=== PATIENT | female | born 1965 | race Caucasian/White ===

== ENCOUNTER 2025-01-13 12:23 | Emergency (ER) | payer BC, SELFPAY ==
--- OUTSIDE RECORDS SUMMARY | 2025-01-13 12:25 | XMS_ITS | Clinical Summary ---
Author Organization [employer] [facility] Address [address] [place] [address] Care Team Providers Care Care Transition Manager Name Role Phone Sagrario Major Sumi Unavailable [phone] Genesis Gallardo Unavailable [phone] Kristi Roberts DO Primary Care Provider [phone] Allergies Active Allergy Reactions Criticality Noted Date Comments Ibuprofen Numbness on left side of face Medications ASPIRIN 81 MG TAB, DELAYED RELEASE take 1 tablet (81 mg) by oral route once daily 0 9 Active cholecalciferol (VITAMIN D) 1,000 unit capsule Take 1 capsule by mouth once daily. 0 1 Active multivitamin capsule Take 1 capsule by mouth once daily. 0 6 Active triamcinolone 0.1 % ointmentIndicat ions:Urticarial rash Apply topically to affected area(s) three times daily. 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 Excised by Dr. Casey on 02/25/21. 01/26/21 - Severally Atypical Nevus on the Left Anterior Thigh. Excised by Dr. Casey on 03/02/21. Mixed incontinence urge and stress 01/14/2021 Synovial cyst of lumbar spine 01/06/2018 Overview (11/28/2021): L sided impingement/spinal stenosis Melanoma in situ (HC) - thigh 11/30/2017 Cancer Staging:Clinical stage from 12/01/2016:Stage 0(cTis, cN0, cM0) - Signed by Irma Hagen MD on 11/28/2021 Overview (11/30/2017): 12/21/2016 Left Lateral Thigh, Malanoma in situ, excised Dr. Angulo Sensorineural hearing loss, bilateral 06/06/2008 Overview (06/20/2023): Wears hearing aids VANDANA III (cervical intraepith elial neoplasia grade III) with severe dysplasia 04/07/2004 Overview (06/28/2023): 02/2004 LSIL-H 03/2004 [facility]: Biopsy VANDANA 2-3, ECC Negative 04/2004 LEEP: VANDANA 2-3, negative margins 07/2004 ASCUS/HPV+ 07/2004 [facility]: Biopsy VANDANA 1 01/2005 ASCUS/HPV Negative 04/2005 NIL 03/2006 NIL 01/2007 NIL 03/2008 NIL 02/2009 NIL 05/2010 NIL 05/2011 NIL 08/2012 NIL NIL/HPV negative 10/2014 NIL 05/2017 NIL/HPV+, HPV 16/18 negative 09/2018 NIL/HPV+ 10/2018 [facility]: Biopsy and ECC Benign 12/2019 NIL/HPV negative 01/2021 NIL/HPV negative 06/2023 NIL/HPV negative. Plan: Pap/HPV due 06/2026. Adjustment disorder with depressed mood Overview (01/29/2007): with stress of divorce Resolved Problems Problem Noted Date Diagnosed Date Resolved Date Routine adult health maintenance 05/25/2017 06/20/2023 Overview (05/25/2017): Colonoscopy 05/2017 normal, repeat in 10 years HPV (human papilloma virus) infection 05/08/2017 06/12/2017 Overview (06/10/2017): HPV positive; Plan - add on HPV 16/18 Melanoma in situ of lower extremity 12/21/2016 11/30/2017 Encounters Date Type Department Care Team Description 01/13/2025 Nurse Triage [facility] [address] [place] [address] Kristi Roberts Zulema, DO Possible Heart Problem from Last 3 Months Immunizations Immunization Administration Dates Next Due AMB Influenza, IIV3 (Age >=3 years)(Flu Clinic Only) 04/02/2008 HepA-HepB (Twinrix) 05/26/2011,07/28/2010 Influenza, IIV3 (Age >=3 years) 05/26/19 12,07/28/2010,02/24/2009,2007 MMR 07/28/2010 Td, Preservative Free (age > = 7 Years) 06/01/2017 Tdap 01/29/2007 Zoster (Shingrix-RZV, recombinant) 06/05/2020, Family History Medical History Relation Name Comments Diabetes Father Heart Disease Father MS age 70 Hypertension Father Macular degeneration Maternal Grandmother Diabetes Mother borderline Hypertension Mother Other Paternal Aunt Unknown Paternal Grandfather Cancer Paternal Grandmother Ovarian or uterine (unsure) Rheum arthritis Sister 1 Cancer-breast No Family History Relation Name Status Comments Father Maternal Grandmother Mother Paternal Aunt Paternal Grandfather Paternal Grandmother Sister 1 Sister 2 Alive Social History Tobacco Use Types Packs/Day Years Used Date Smoking Tobacco: Former Smokeless Tobacco: Never Tobacco Cessation:Counseling Given: Yes Comments:socially only as young adult Alcohol Use Standard Drinks/Week Comments Yes 2 (1 standard drink = 0.6 oz pure alcohol) 2 times a week couple glasses of wine PHQ-2 Answer Date Recorded PHQ-2 TOTAL SCORE 0 06/20/2023 Social Connections Answer Date Recorded Do you often feel lonely or isolated from those around you? 0 08/16/2023 Financial Resource Strain Answer Date R ecorded Difficulty of Paying Living Expenses 3 08/16/2023 Difficulty of Paying Living Expenses Not on file 08/16/2023 Food Insecurity Answer Date Recorded Do you worry your food will run out before you are able to buy more? 1 08/16/2023 Transportation Needs Answer Date Record ed Does lack of transportation keep you from medica l appointments? 1 08/16/2023 Does lack of transportation keep you from work, meetings or getting things that you need? 1 08/16/2023 Housing Stability Answer Date Recorded What is your housing situation today? 1 08/16/2023 Utilities Answer Date Recorded Do you have trouble paying f or utilities (for example, heat, electricity, water, phone)? 1 08/16/2023 Comments No Sex and Gender Information Value Date Recorded Sex Assigned at Not on file Legal Sex Female 6:13 AM HEALTH CLUB MANAGER Gender Identity Not on file Sexual Orientation Not on file Occupation Industry Job Start Date Job End Date Not on file Not on file Not on file Not on file [employer] Not on file Not on file Not on file Obstetrics History Para Term AB IAB SAB Ectopic Multiple Livin g Live Births 2 2 2 0 0 0 0 0 2 2 Date Outcome GA Total Labor Labor/2nd/3rd Weight Sex Type Anes PTL Zulema A1 A5 Name Clin Term 2.95 kg (6 lb 8 oz) Living Term 3.29 kg (7 lb 4 oz) Living Last Filed Vital Signs Vital Sign Reading Time Taken Comments Blood Pressure 112/77 10/10/2023 11:06 AM CDT Pulse 77 10/10/2023 11:06 AM CDT Temperature 36.8 C (98.2 F) 10/08/2018 10:09 AM CDT Respiratory Rate 16 12/21/2016 10:44 AM CDT Oxygen Saturation 98% 10/10/2023 11:06 AM CDT Inhaled Oxygen Concentration - - Weight 69.4 kg (153 lb) 08/29/2023 2:35 PM CDT Height 159.2 cm (5' 2.68) 06/20/2023 8:12 AM CS T Body Mass Index 27.38 06/20/2023 8:12 AM HEALTH CLUB MANAGER Plan of Treatment Upcoming Encounters Date Type Department Care Team (Late st Contact Info) Description 02/03/2025 8:30 AM CDT Office Visit [facility] [address] [place] [address] Kristi Roberts, DO [address] [place] [address] 04/09/2025 10:20 AM HEALTH CLUB MANAGER Office Visit [facility] [address] [place] [address] Genesis Gallardo PA [address] [address] [place] [address] Health Maintenance Due Date Last Done Comments Hepatitis B series for 19+ (3 of 3 - Hep B Twinrix 3-dose series) 10/25/2011 05/26/2011, 07/28/2010 Pneumococcal series for age 50+ (1 of 1 - PCV) 2014 BMI (ht and wt on same day) for age 18+ 06/20/2024 06/20/2023, 05/19/2022, 01/14/2021, Additional history exists Depression screening for age 12+ 06/20/2024 06/20/2023, 01/14/2021, 12/12/2019, Additional history exists COVID-19 vaccine series (2023- season) 2025 Influenza Vaccine (#1) 2025 2, 07/28/2010, 02/24/2009, Additional history exists Mammogram for age 45-75 07/25/2025 07/26/19, 06/20/2023, 05/04/2022, Additional history exists Pap test for age 21-65 06/20/2026 , 06/20/2023, 01/14/2021, Additional history exists Colonoscopy through age 75 05/25/202705/25, 05/25/2017, 05/25/2017 Tetanus booster 06/01/2027 06/01/2017, 01/29/2007 Lipids for age 45-75 06/20/2028 06/20/2023, 12/12/2019, 06/01/2017, Additional history exists RSV vaccine for adults or (1 - 1-dose 75+ series) 11/17/2039 HIV for age 15-65 Addressed 01/25/2005 (Ve rified in Care Everywhere or Patient Record) Overridden with the intention of not completing the topic Hepatitis C screening for age 18-79 Completed 01/25/2005 Zoster (shingles) series for age 50+ Completed 06/05/2020, 12/12/2019 Procedures Procedure Name Priority Date/Time Associated Diagnosis Comments XR MAMMO AFTAB BILAT SCREEN Routine 07/25/2024 8:39 AM CDT Visit for screening mammogram LIPID PANEL W REFLEX MEASURED LDL Routine 06/20/2023 9:21 AM HEALTH CLUB MANAGER Screening cholesterol level [facility] THIN PREP PAP SCREEN IMAGED Routine 06/20/2023 9:08 AM HEALTH CLUB MANAGER Pap smear for cervical cancer screening COLONOSCOPY 05/25/2017 7:40 AM HEALTH CLUB MANAGER ANTI HCV Timed 01/25/2005 11:57 AM CDT from Last 3 Months or Most Recently Relevant to Health Maintenance Results * XR MAMMO AFTAB BILAT SCREEN (07/25/2024 8:39 AM CDT) Anatomical Region Laterality Modality BREASTS, Breast Left, Breast Right Bilateral Mammography Impressions 07/25/2024 2:41 PM CDT There is no radiographic evidence for malignancy. Recommend annual mammograms. MAMMOGRAM ASSESSMENT: ACR 1 Negative PATIENTS: You will also receive a letter with your examination results in an easy to read format. If you have questions about your results, please contact your referring provider. Narrative 07/25/2024 2:41 PM CDT For Patients: As a result of the Century Cures Act, medical imaging exams and procedure reports are released immediately into your electronic medical record. You may view this report before your referring provider. If you have questions, please contact your health care provider. XR MAMMO AFTAB BILAT SCREEN [[id number]] CLINICAL HISTORY: This is an asymptomatic 58 y.o. patient. INDICATION FOR EXAM: Mammogram Screening. TECHNIQUE: CC and MLO views were obtained. This study was evaluated with the assistance of Computer-Aided Detection. Breast Tomosynthesis was used in interpretation. COMPARISON FILM: Yes 06/20/23 [employer] 05/04/22 [facility] FINDINGS: There are scattered areas of fibroglandular density. There are no dominant masses, suspicious micro calcifications or areas of architectural distortion. Kristi Roberts DO MAMMO Final Result * (ABNORMAL) LIPID PANEL W REFLEX MEASURED LDL (06/20/2023 9:21 AM HEALTH CLUB MANAGER) CHOLESTEROL,TOTAL 224(H) 100 - 199 mg/dL 06/20/2023 8:21 PM HEALTH CLUB MANAGER [facility] Comment: Cholesterol, Total Reference Ranges Desirable <200 mg/dL Borderline 200-239 mg/dL High >=240 mg/dL TRIGLYCERIDES 64 <150 mg/dL 06/20/2023 8:21 PM HEALTH CLUB MANAGER [facility] HDL CHOLESTEROL 68 >40 mg/dL 8:21 PM HEALTH CLUB MANAGER [facility] NON-HDL CHOLESTEROL 156(H) <145 mg/dl 06/20/2023 8:21 PM [facility] CHOL/HDL RATIO 3.29 <4.50 06/20/2023 8:21 PM HEALTH CLUB MANAGER [facility] LDL CHOLESTEROL 143(H) <=130 mg/dL 06/20/2023 8:21 PM HEALTH CLUB MANAGER [facility] VLDL CHOLESTEROL 13 <=30 mg/dL 06/20/2023 8:21 PM [facility] PROVIDER ORDERED STATUS RANDOM 06/20/2023 8:21 PM [facility] Blood BLOOD SPECIMEN / Unknown Venipuncture / Unknown 06/20/2023 9:21 AM HEALTH CLUB MANAGER 06/20/2023 9:21 AM HEALTH CLUB MANAGER Kristi Roberts DO CHEMISTRY Final Result [facility] [address] [place] [address], * [facility] THIN PREP PAP SCREEN IMAGED (06/20/2023 9:08 AM HEALTH CLUB MANAGER) Case Report Gynecologic Cytology Report Case: [id number] Authorizing Provider: Kristi Roberts DO Collected: 06/20/2023 0908 Ordering Location: [facility] Received: 06/20/2023 0922 Clinic First Screen: Evens Rayo Specimen: [facility] ThinPrep Vial Screening, Cervical 06/27/2023 8:35 AM HEALTH CLUB MANAGER [facility] [employer]AL [facility] INTERPRETATION/ RESULT NEGATIVE FOR INTRAEPITHELIAL LESION OR MALIGNANCY (NIL) (none) 06/27/2023 8:35 AM HEALTH CLUB MANAGER [facility] at 0835 HEALTH CLUB MANAGER SPECIMEN ADEQUACY Satisfactory for evaluation Endocervical cells cannot be evaluated due to severe atrophy 06/27/2023 8:35 AM HEALTH CLUB MANAGER [facility] HPV REQUEST HPV and PAP 06/27/2023 8:35 AM HEALTH CLUB MANAGER [facility] Date of LMP n/A 06/27/2023 8:35 AM HEALTH CLUB MANAGER [facility] Last Pap Date 01/14/21 06/27/2023 8:35 AM HEALTH CLUB MANAGER [facility] Last Pap Result NIL 8:35 AM HEALTH CLUB MANAGER [facility] Abnormal Pap or Clemons Bx in last 5 years No 06/27/2023 8:35 AM HEALTH CLUB MANAGER [facility] Menstrual Status Postmenopausal 06/27/2023 8:35 AM HEALTH CLUB MANAGER [facility] Clemons Bx Done Today No 06/27/2023 8:35 AM HEALTH CLUB MANAGER [facility] Additional Information None given 06/27/2023 8:35 AM HEALTH CLUB MANAGER [facility] Comment: Cytology is screened at [facility], Central Laboratory - [address], [place] [address] and [facility] - [address] [place] [address], [place] [address] and [facility] - [address] [place] [address] Interpreted at [facility] - [address] [place] [address], [place] [address] Automated Review Successful 06/27/2023 8:35 AM HEALTH CLUB MANAGER [facility] Comment:Specimen processed s uccessfully by automated loan underwriter device, ThinPrep Imaging System, [employer] ANCILLARY TESTING [facility] HPV Ordered, Please see separate report 06/27/2023 8:35 AM HEALTH CLUB MANAGER [facility]- ENTRAL LABORATORY Note The pap test is a screening technique, not a diagnostic procedure. It is used primarily to screen for squamous cancers and precursor lesions. Published studies have shown that it is subject to both false negative and false positive results. The pap test should not be used as the sole means to diagnose or exclude pre-malignant and malignant lesions. 06/27/2023 8:35 AM HEALTH CLUB MANAGER [facility] Other (Cervical) Non-Blood / Unknown 06/20/2023 9:08 AM HEALTH CLUB MANAGER 06/20/2023 9:22 AM HEALTH CLUB MANAGER us Kristi Roberts DO PATHOLOGY/CYTOLOGY Final Resu lt [facility] [address] [place] [address], [place] * COLONOSCOPY (05/25/2017 7:40 AM HEALTH CLUB MANAGER) 05/25/2017 7:40 AM HEALTH CLUB MANAGER Narrative Transcriptions Leighton Parks MD - 05/25/2017 8:29 AM CST Patient Name: Lizzeth Dean Procedure Date: 05/25/2017 Gender: Female Date of : 1965 Admit Type: Outpatient Procedure: Colonoscopy Proceduralist: Leighton Parks MD , Tatum Perrin (Nurse) Indications/Pre-Op Diagnosis: Screening for colorectal malignant neoplasm, This is the patient's first colonoscopy Medications: Fentanyl 100 micrograms IV, Midazolam 4 mgIV, The level of sedation administered wasmoderate Procedure Description: The patient had risks, benefits and alternatives explained to andgave informed consent. The patient had a stable cardiopulmonary status and judged an adequate candidate for conscious sedation. The [id number] was passed through the anus and advanced tothe cecum, identified by appendiceal orifice and ileocecal valve. The colonoscopy was performed without difficulty. The patient toleratedthe procedure well. The quality of the bowel preparation was good. The ileocecal valve, appendiceal orifice, and rectum were photographed. Complications: No immediate complications. Estimated Blood Loss & Specimen: Estimated blood loss: none. Specimen collected - None Findings: The perianal and digital rectal examinations were normal. The entire examined colon appeared normal on direct and retroflexion views. Impressions/Post-Op Diagnosis: - The entire examined colon is normal on direct and retroflexionviews. - No specimens collected. Recommendation: - Patient has a contact number available for emergencies. The signsand symptoms of potential delayed complications were discussed with the patient. Return to normal activities tomorrow. Written discharge instructions were provided to the patient. - Resume previous diet. - Continue present medications. - Repeat colonoscopy in 10 years for screening purposes. Moderate Sedation: Moderate (conscious) sedation was administered by the endoscopy nurse and supervised by the endoscopist. The following parameters were monitored: oxygen saturation, heart rate, respiratory rate, blood pressure, adequacy of pulmonary ventilation and reponse to care. Please refer to the the medical center'ts medical record flowsheets and nursing notes for moderate sedation details. Total physician intraservice time was 19 minutes. Leighton Parks MD 05/25/2017 8:29:12 AM This report has been signed electronically. Note Initiated On: 05/25/2017 7:40 AM Procedure Code(s): --- Professional --- 64417, Colonoscopy, flexible; diagnostic, including collection of specimen(s) bybrushing or washing, when performed (separateprocedure) Diagnosis Code(s): --- Professional --- Z12.11, Encounter for screening formalignant neoplasm of colon CPT copyright 2016 [employer]. All rights reserved. The codes documented in this report are preliminary and upon roller stitcher reviewmay be revised to meet current compliance requirements. Scope In: 8:09:29 AM Scope Withdrawal Time 0 hours 9 minutes 17 seconds Scope Out: 8:26:00 AM us Leighton Parks MD PROCEDURE ORD Final Res ult * ANTI HCV (01/25/2005 11:57 AM CDT) ANTI HCV Non-reactiv e [facility] 01/25/2005 11:5 7 AM CDT 01/25/2005 9:01 PM CDT Narrative [facility] - 01/27/2005 9:42 AM CDT Testing Performed By [place], [place] us Irma Hagen MD SEND OUTS Final Result Performing Organization Address City/State/[facility] Co de Phone Number [facility] [address] [place] [address] from Last 3 Months or Most Recently Relevant to Health Maintenance Insurance [employer] Advance Directives * Full Code (Latest Code Status on File) Date Activated Date Inactivated Comments 12/21/2016 10:40 AM 12/21/2016 1:37 PM Care Teams Care Transition Manager Relationship Specialty Start Date End Date Kristi Roberts DO [address] [place] [address] PCP - General Family Practice 08/29/23 Sagrario Major AuD Audiology 03/31/08 Genesis Gallardo PA Dermatology Physician Airport Operations Manager 11/30/17
[2025-01-13 12:39] VITALS: BP 145/87; PULSE 84; RESP 16; TEMP 36.7; O2SAT 97; BMI 25.9
--- NOTE | 2025-01-13 13:38 | ED.ARRPALP ---
HPI - Arrhythmia/Palpitations General Chief Complaint: Arrhythmia/Palpitations Stated Complaint: Shortness of Breath, irregular heart rythem Time Seen by Provider: 01/13/25 12:50 History of Present Illness HPI narrative: This 59-year-old female comes in reporting some palpitations and feeling like she gets short of breath at times when ambulating up some steps. She does not report any chest pain or lightheadedness. She does not have any diaphoresis, nausea, vomiting, or other associated symptoms. She did call a nurse line and was instructed to come in here. She does have appointment with her primary physician in a few weeks. Related Data Home Medications ?Medication ?Instructions ?Recorded ?Confirmed aspirin 81 mg tablet 81 mg PO DAILY 01/13/25 01/13/25 Allergies Allergy/AdvReac Type Severity Reaction Status Date / Time ibuprofen Allergy Unknown Verified 01/13/25 12:44 Review of Systems Status of ROS: Reports: 10 or more systems reviewed and unremarkable except as noted in History and below Narrative: Constitutional: No fevers, no weight gain or loss. Eyes: No discharge. No vision changes. HENT: No congestion, no sore throat, no ear pain. Cardiovascular: No chest pain. She reports palpitations. Respiratory: No shortness of breath, no wheezes, no cough. Gastrointestinal: No abdominal pain, no vomiting, no diarrhea. Genitourinary: No dysuria, no hematuria. Musculoskeletal: Normal range of motion. Skin: No rashes, no pruritis. Neurological: No dizziness, weakness, sensory change, speech change. Endo/Heme/Allergies: No bruising or bleeding. No polydipsia. Pysch: no suicidality, no anxiety, no insomnia. All other systems reviewed and are negative. Exam Narrative: Exam Narrative: Constitutional: Well-developed, well-nourished, no acute distress. HEENT: Normocephalic, atraumatic. Neck: Normal range of motion. Nontender. Supple. Heart: Regular. No murmurs. Normal rate. Intact distal pulses. Lungs: Clear to auscultation. No chest discomfort. No wheezes, rhonchi, or rales. Abdomen: Normal bowel sounds. Nontender. No rebound tenderness. Genitalia: Deferred. Back: No midline tenderness. Normal range of motion. Extremities: Normal range of motion. No injury. Skin: Intact. No rash. Warm. No erythema or pallor. Neurologic: No altered sensation. No weakness. Alert and oriented. Psychiatric: No suicidality. No anxiety or depression. No insomnia. Nursing notes and vitals signs are reviewed. Const: Vital Signs, click to edit/add: Vital Signs - 24 hr 01/13/25 12:39 Temperature 98.1 F Pulse Rate [Pulse Oximeter] 84 Respiratory Rate 16 Blood Pressure [Ri ght Upper Arm] 145/87 H Pulse Oximetry 97 Oxygen Delivery Me thod Room Air Course Vital Signs Vital signs: Initial Vital Signs Temperature 98.1 F 01/13/25 12:39 Temperature Source Temporal Artery Scan 01/13/25 12:39 Pulse Rate 84 01/13/25 12:39 Respiratory Rate 16 01/13/25 12:39 Blood Pressure 145/87 H 01/13/25 12:39 Blood Pressure Mean 106 H 01/13/25 12:39 Blood Pressure Position Sitting 01/13/25 12:39 Pulse Oximetry 97 01/13/25 12:39 Oxygen Delivery Method Room Air 01/13/25 12:39 Vital Signs Temperature 98.1 F 01/13/25 12:39 Pulse Rate 84 01/13/25 12:39 Respiratory Rate 16 01/13/25 12:39 Blood Pressure 145/87 H 01/13/25 12:39 Pulse Oximetry 97 01/13/25 12:39 Oxygen Delivery Method Room Air 01/13/25 12:39 Temperature 98.1 F 01/13/25 12:39 Pulse Rate 84 01/13/25 12:39 Respiratory Rate 16 01/13/25 12:39 Blood Pressure 145/87 H 01/13/25 12:39 Pulse Oximetry 97 01/13/25 12:39 Oxygen Delivery Method Room Air 01/13/25 12:39 MDM - Arrhythmia/Palpitations MDM Narrative Medical decision making narrative: This patient arrives reporting feelings of palpitations and states that sometimes she feels like her heart is going faster and other times slower. Throughout her stay here she has had normal vital signs and no symptoms. An EKG is done and shows normal sinus rhythm without any premature beats or other abnormalities. I did explain some basic cardiac physiology that can describe what is happening with premature beats. I also discussed lab and imaging options that we have available here. In a process of shared decision making the patient declined this for now and stated that she is reassured with results of what has been done so far. She has a follow-up appointment with her primary physician in a few weeks. I did describe signs and symptoms that would indicate a need for return re-evaluation. ECG Data Attestation: I personally reviewed and interpreted this ECG as follows: Interpretation: Normal sinus rhythm. Rate is 71 beats per minute. There are no ST or T-wave abnormalities. Discharge Plan Discharge Clinical Impression: Palpitations Patient Disposition: Home, Self-Care Condition: Stable Additional Instructions: Continue current plans. Follow up with MD as scheduled. Return if symptoms are persistent or worsening. Prescriptions: No Action aspirin 81 mg tablet 81 mg PO DAILY Follow Up/Referrals: Irma Hagen MD [Primary Care Provider, Family Practice] Stand Alone Forms: [employer] Info Instructions
== END 2025-01-13 14:01 | disposition home or self-care (01) ==
LOC: ED 13:56
PROVIDERS: Emergency Provider Emergency Medicine Emergency Medical Services; PCP Family Medicine
DX: R00.2 Palpitations (principal)
CPT/HCPCS: 93005; 99284